=== PATIENT | male | born 1950 | race African-American/Black ===

== ENCOUNTER 2017-08-18 06:22 | Emergency (ER) | payer OTHER ==
[~2017-08-18] VITALS: Ht 172.7 cm; Wt 108.9 kg
[2017-08-18 06:25] VITALS: BP_SYST 146
[2017-08-18 06:52] VITALS: BP_SYST 138
== END 2017-08-18 06:52 | disposition home or self-care (01) ==
LOC: SED 06:22
DX: R04.0 Epistaxis (principal); I10 Essential (primary) hypertension
CPT/HCPCS: 99283